=== PATIENT | female | born 1970 | race Caucasian/White ===

== ENCOUNTER 2017-02-20 03:34 | Emergency (ER) | payer OTHER ==
[~2017-02-20] VITALS: Ht 170.2 cm; Wt 88.5 kg
[~2017-02-20 03:34] MED LIST: ALBUTEROL INHAL17 GM; ALBUTEROL2.5 MG/31 INH; CEFUROXIME250 MG PO; K-DUR 20 MEQ T20 MEQ PO; LEVAQUIN 500 M500 M4 PO; MEDROL DOSPAK21 TA1 PO; NORCO 5-325 TA1 EACH PO; PREDNISOLONE 5 M5 M1 PO; PREDNISONE50 MG PO; PROAIR HFA8.5 GM IH; ULTRAM 50MG TAB50 MG PO; VENTOLIN HFA INH8 GM; VIRTUSSIN AC L473 ML PO; ZOFRAN ODT4 MG PO; ZPAK PO
[2017-02-20] MEDS ORDERED: ALEVE220 MG PO (03:42)
[2017-02-20 04:04] LABS: HEMATOCRIT 44.1 % (37.0-47.0); HEMOGLOBIN 14.7 gm/dL (12.0-15.0); MCH 30.6 pg (26.0-34.0); MCHC 33.2 g/dL (28.0-37.0); MCV 92.1 fL (80.0-100.0); MPV 8.3 fl. (7.2-11.1); NUCLEATED RBCS 0 /100WBC; PLATELET COUNT* 242 thou/uL (150-400); RBC 4.79 mil/uL (4.20-5.00); RDW-CV 13.2 % (10.5-14.5); WBC 14.3 thou/uL (4.0-11.0)
[2017-02-20 04:25] LABS: ANION GAP 12 mmol/L (7-16); BUN 11 mg/dL (7-18); CALCIUM 9.7 mg/dL (8.5-10.1); CHLORIDE 106 mmol/L (98-107); CO2 21 mmol/L (21-32); CREATININE 0.7 mg/dL (0.6-1.3); GLUCOSE 128 mg/dL (70-99); LIPASE 105 U/L (73-393); SGOT 9 U/L (15-37); SODIUM 139 mmol/L (136-145); TOTAL BILIRUBIN 0.4 mg/dL (<0.1-1.0)
[2017-02-20 04:26] LABS: ALBUMIN 3.7 g/dL (3.4-5.0); ALKALINE PHOSPHATASE 69 U/L (46-116); SGPT 20 U/L (30-65); TOTAL PROTEIN 6.5 g/dL (6.4-8.2); TROPONIN-I LEVEL <0.06 ng/mL (<0.06)
[2017-02-20 05:00] LABS: URINE BILIRUBIN NEGATIVE (Negative); URINE BLOOD TRACE (Negative); URINE CLARITY CLEAR; URINE COLOR YELLOW; URINE GLUCOSE-RANDOM NEGATIVE (Negative); URINE KETONES NEGATIVE (Negative); URINE LEUKOCYTES-REFLEX NEGATIVE (Negative); URINE NITRITE-REFLEX NEGATIVE (Negative); URINE PROTEIN NEGATIVE (Negative); URINE UROBILINOGEN 0.2 E.U./dl (0.2-1.0)
[2017-02-20 05:10] LABS: ABSOLUTE LYMPHOCYTES 0.9 thou/uL (0.8-5.3); ABSOLUTE MONOCYTES 0.3 thou/uL (0.0-1.2); ABSOLUTE NEUTROPHILS 13.2 thou/uL (1.6-8.1); ANISOCYTOSIS Occasional; PLATELET ESTIMATE ADEQUATE
[2017-02-20 05:11] LABS: TOXIC GRANULATION 1+
[2017-02-20] MEDS ORDERED: NORCO 5-325 TA1 EACH PO (06:01)
[2017-02-20] MEDS ORDERED: ZOFRAN ODT4 MG SUBLING (06:01)
[2017-02-20] MEDS ORDERED: CIPROFLOXACIN500 M1 PO (06:02)
[2017-02-20 06:08] VITALS: BP 101/58
--- NOTE | 2017-02-20 11:23 | EKG ---
[place] [address] ELECTROCARDIOGRAM REPORT Name: DEALOTILIO Kitty Room: [facility]#: [id number] Admission: 02/20/17 Attend Phys: Discharge: 02/20/17 Date of : 68 Report #: [id number] THIS REPORT FOR: //name// [facility] ED Test Date: 2017-02-20 Test Time: 03:54:30 Pat Name: OTILIO DEAL Department: Room: Gender: F Senior Sql Developer: THADDEUS : 1970 Requested By: Walt Cantu Order Number: [id number] MD: Bassem Elmore Measurements Intervals [place] Rate: 82 P: 36 IN: 161 QRS: 7 QRSD: 81 T: 29 QT: 370 QTc: 432 Interpretive Statements Sinus rhythm Baseline wander in lead(s) V4 Compared to ECG 10/09/2013 11:15:04 Sinus arrhythmia no longer present Electronically Signed On 02-20-2017 11:23:15 JOINT SEALER by Bassem Elmore [email or web address] <ELECTRONICALLY SIGNED> By: Bassem Elmore MD, [facility] 02/20/17 [id number] Bassem Elmore MD, FACC /EPI
== END 2017-02-20 06:08 | disposition home or self-care (01) ==
LOC: M.ERS 03:34
PROVIDERS: Family Medicine
DX: R11.2 Nausea with vomiting, unspecified (principal); R10.9 Unspecified abdominal pain; J45.909 Unspecified asthma, uncomplicated; F17.210 Nicotine dependence, cigarettes, uncomplicated; Z90.710 Acquired absence of both cervix and uterus; Z88.8 Allergy status to other drugs, medicaments and biological substances

== ENCOUNTER 2017-06-11 21:09 | Emergency (ER) | payer OTHER ==
[~2017-06-11] VITALS: Ht 170.2 cm; Wt 97.1 kg
[~2017-06-11 21:09] MED LIST changes: +ALEVE220 MG PO; +CIPROFLOXACIN500 M1 PO; +ZOFRAN ODT4 MG SUBLING
[2017-06-11 21:35] LABS: ABSOLUTE EOSINOPHILS 0.1 thou/uL (0.0-0.7); ABSOLUTE LYMPHOCYTES 1.5 thou/uL (0.8-5.3); ABSOLUTE MONOCYTES 0.5 thou/uL (0.0-1.2); ABSOLUTE NEUTROPHILS 2.9 thou/uL (1.6-8.1); BASOPHILS 0.8 %; EOSINOPHILS 2.2 %; HEMATOCRIT 40.4 % (37.0-47.0); HEMOGLOBIN 13.4 gm/dL (12.0-15.0); LYMPHOCYTES 29.2 %; MCH 30.7 pg (26.0-34.0); MCHC 33.3 g/dL (28.0-37.0); MCV 92.3 fL (80.0-100.0); MONOCYTES 9.9 %; MPV 7.8 fl. (7.2-11.1); NUCLEATED RBCS 0 /100WBC; PLATELET COUNT* 194 thou/uL (150-400); POLYS 57.9 %; RBC 4.38 mil/uL (4.20-5.00); RDW-CV 13.3 % (10.5-14.5)
[2017-06-11 21:41] LABS: ANION GAP 9 mmol/L (7-16); BUN 5 mg/dL (7-18); CALCIUM 8.8 mg/dL (8.5-10.1); CHLORIDE 106 mmol/L (98-107); CO2 26 mmol/L (21-32); CREATININE 0.8 mg/dL (0.6-1.3); GLUCOSE 91 mg/dL (70-99); POTASSIUM 3.4 mmol/L (3.5-5.1); SODIUM 141 mmol/L (136-145)
[2017-06-11 21:51] LABS: ALBUMIN 3.6 g/dL (3.4-5.0); ALKALINE PHOSPHATASE 60 U/L (46-116); LIPASE 97 U/L (73-393); NT-PRO BRAIN NAT PEPTIDE 33 pg/mL (<300); SGOT 16 U/L (15-37); SGPT 24 U/L (30-65); TOTAL BILIRUBIN 0.2 mg/dL (<0.1-1.0); TOTAL PROTEIN 6.9 g/dL (6.4-8.2); TROPONIN-I LEVEL <0.06 ng/mL (<0.06)
[2017-06-11 21:53] LABS: URINE BILIRUBIN NEGATIVE (Negative); URINE BLOOD 1+ (Negative); URINE CLARITY CLEAR; URINE COLOR YELLOW; URINE GLUCOSE-RANDOM NEGATIVE (Negative); URINE KETONES NEGATIVE (Negative); URINE LEUKOCYTES-REFLEX NEGATIVE (Negative); URINE NITRITE-REFLEX NEGATIVE (Negative); URINE PROTEIN NEGATIVE (Negative); URINE UROBILINOGEN 0.2 E.U./dl (0.2-1.0)
[2017-06-11 22:03] LABS: CRYSTALS None Seen /LPF (None Seen); MUCUS None Seen strn/LPF (None Seen); SQUAMOUS 0-3 Few /LPF (0-3)
[2017-06-11 22:04] LABS: CASTS None Seen /LPF (None Seen); URINE RBC 0-2 Rare /HPF (0-2)
[2017-06-11 22:05] LABS: BACTERIA-REFLEX 1-9 Few /HPF (None Seen); URINE WBC-REFLEX 0-5 Rare /HPF (0-5)
[2017-06-11] MEDS ORDERED: CARAFATE 1 GM TA1 GM PO (22:52)
[2017-06-11] MEDS ORDERED: COMPAZINE10 MG PO (22:52)
[2017-06-11 23:08] VITALS: BP 137/88
--- NOTE | 2017-06-13 17:18 | EKG ---
[place] [address] ELECTROCARDIOGRAM REPORT Name: OTILIO DEAL Room: [facility]#: [id number] Admission: 06/11/17 Attend Phys: Discharge: 06/11/17 Date of : 68 Report #: [id number] THIS REPORT FOR: //name// [facility] ED Test Date: 2017-06-11 Test Time: 21:15:06 Pat Name: OTILIO DEAL Department: Room: Gender: F Juvenile Justice Specialist: THADDEUS : 1970 Requested By: Agustina Traylor Order Number: [id number] MD: Mike Greene Measurements Intervals [place] Rate: 77 P: 31 PA: 164 QRS: 65 QRSD: 99 T: 25 QT: 366 QTc: 415 Interpretive Statements Sinus rhythm Possible left atrial enlargement Compared to ECG 02/20/2017 03:54:30 No significant changes Electronically Signed On 06-13-2017 17:18:08 CDT by Mike Greene [email or web address] <ELECTRONICALLY SIGNED> By: Mike Greene MD, [facility] 06/13/17 1718 14 Mike Greene MD, FACC /EPI
== END 2017-06-11 23:09 | disposition home or self-care (01) ==
LOC: M.ERS 21:09
PROVIDERS: Emergency Medicine
DX: R11.2 Nausea with vomiting, unspecified (principal); F17.210 Nicotine dependence, cigarettes, uncomplicated; Z88.8 Allergy status to other drugs, medicaments and biological substances; J45.909 Unspecified asthma, uncomplicated; Z90.710 Acquired absence of both cervix and uterus

== ENCOUNTER 2018-10-18 16:06 | Emergency (ER) | payer OTHER ==
[~2018-10-18] VITALS: Ht 170.2 cm; Wt 95.3 kg
[~2018-10-18 16:06] MED LIST changes: +CARAFATE 1 GM TA1 GM PO; +COMPAZINE10 MG PO
[2018-10-18 16:31] LABS: ABSOLUTE BASOPHILS 0.1 thou/uL (0.0-0.2); ABSOLUTE EOSINOPHILS 0.1 thou/uL (0.0-0.7); ABSOLUTE LYMPHOCYTES 1.9 thou/uL (0.8-5.3); ABSOLUTE MONOCYTES 0.7 thou/uL (0.0-1.2); ABSOLUTE NEUTROPHILS 8.4 thou/uL (1.6-8.1); BASOPHILS 0.5 %; EOSINOPHILS 0.9 %; HEMATOCRIT 41.4 % (37.0-47.0); HEMOGLOBIN 13.7 gm/dL (12.0-15.0); LYMPHOCYTES 16.9 %; MCH 30.5 pg (26.0-34.0); MCV 92.5 fL (80.0-100.0); MONOCYTES 6.5 %; MPV 7.8 fl. (7.2-11.1); NUCLEATED RBCS 0 /100WBC; PLATELET COUNT* 323 thou/uL (150-400); POLYS 75.2 %; RBC 4.48 mil/uL (4.20-5.00); WBC 11.2 thou/uL (4.0-11.0)
[2018-10-18 16:39] LABS: URINE BILIRUBIN NEGATIVE (Negative); URINE BLOOD 2+ (Negative); URINE CLARITY CLEAR; URINE COLOR YELLOW; URINE GLUCOSE-RANDOM NEGATIVE (Negative); URINE KETONES NEGATIVE (Negative); URINE LEUKOCYTES-REFLEX TRACE (Negative); URINE NITRITE-REFLEX NEGATIVE (Negative); URINE PROTEIN NEGATIVE (Negative); URINE SPECIFIC GRAVITY <= 1.005 (1.005-1.030); URINE UROBILINOGEN 0.2 E.U./dl (0.2-1.0)
[2018-10-18 16:40] LABS: ANION GAP 10 mmol/L (7-16); BUN 9 mg/dL (7-18); CALCIUM 8.6 mg/dL (8.5-10.1); CHLORIDE 105 mmol/L (98-107); CO2 26 mmol/L (21-32); CREATININE 0.8 mg/dL (0.6-1.3); GLUCOSE 101 mg/dL (70-99); POTASSIUM 3.7 mmol/L (3.5-5.1); SODIUM 141 mmol/L (136-145)
[2018-10-18 16:49] LABS: ALBUMIN 3.6 g/dL (3.4-5.0); ALKALINE PHOSPHATASE 91 U/L (46-116); LIPASE 82 U/L (73-393); SGOT 13 U/L (15-37); SGPT 23 U/L (30-65); TOTAL BILIRUBIN 0.4 mg/dL (<0.1-1.0); TOTAL PROTEIN 7.2 g/dL (6.4-8.2); TROPONIN-I LEVEL <0.06 ng/mL (<0.06)
[2018-10-18 17:03] LABS: SQUAMOUS >10 Many /LPF (0-3)
[2018-10-18 17:04] LABS: CASTS None Seen /LPF (None Seen); CRYSTALS None Seen /LPF (None Seen); MUCUS 0-3 Light strn/LPF (None Seen)
[2018-10-18 17:05] LABS: BACTERIA-REFLEX 1-9 Few /HPF (None Seen); URINE RBC 0-2 Rare /HPF (0-2); URINE WBC-REFLEX 0-5 Rare /HPF (0-5)
[2018-10-18] MEDS ORDERED: MEDROLDOSEPACK PO (19:40)
[2018-10-18] MEDS ORDERED: CEFUROXIME250 MG PO (19:40)
[2018-10-18] MEDS ORDERED: PROAIR HFA8.5 GM INH (19:40)
[2018-10-18 20:09] VITALS: BP 123/72
--- NOTE | 2018-10-19 09:45 | EKG ---
[place] [address] ELECTROCARDIOGRAM REPORT Name: OTILIO DEAL Room: [facility]#: [id number] Admission: 10/18/18 Attend Phys: Discharge: 10/18/18 Date of : 68 Report #: [id number] THIS REPORT FOR: //name// [facility] ED Test Date: 2018-10-18 Test Time: 16:28:54 Pat Name: OTILIO DEAL Department: Room: Gender: F Nursing Teacher: ROSALIND : 1970 Requested By: Jennifer Aleman Order Number: [id number] MD: Bassem Elmore Measurements Intervals [place] Rate: 81 P: 19 [place]: 161 QRS: -12 QRSD: 83 T: 14 QT: 360 QTc: 418 Interpretive Statements Sinus rhythm Left atrial enlargement Low voltage, precordial leads Baseline wander in lead(s) II,V1 Compared to ECG 06/11/2017 21:15:06 Low QRS voltage now present Electronically Signed On 10-19-2018 9:45:03 CDT by Bassem Elmore [email or web address] <ELECTRONICALLY SIGNED> By: Bassem Elmore MD, [facility] 10/19/18 0945 [id number] 1628 Bassem Elmore MD, [facility] /EPI
== END 2018-10-18 20:11 | disposition home or self-care (01) ==
LOC: M.ERS 16:06
PROVIDERS: Nurse Practitioner Family
DX: J45.909 Unspecified asthma, uncomplicated (principal); R10.11 Right upper quadrant pain; R11.2 Nausea with vomiting, unspecified; F17.210 Nicotine dependence, cigarettes, uncomplicated; Z90.710 Acquired absence of both cervix and uterus; Z88.8 Allergy status to other drugs, medicaments and biological substances; Z91.018 Allergy to other foods

== ENCOUNTER 2019-03-26 03:42 | Emergency (ER) | payer OTHER ==
[~2019-03-26] VITALS: Ht 170.2 cm; Wt 111.1 kg
[~2019-03-26 03:42] MED LIST changes: +MEDROLDOSEPACK PO; +PROAIR HFA8.5 GM INH
[2019-03-26] MEDS ORDERED: PREDNISONE50 MG PO (05:57)
[2019-03-26] MEDS ORDERED: DIAZEPAM 5 MG5 MG PO (05:57)
[2019-03-26] MEDS ORDERED: TYLENOL WITH CO1 TA1 PO (05:57)
[2019-03-26 06:14] VITALS: BP 108/59
== END 2019-03-26 06:14 | disposition home or self-care (01) ==
LOC: M.ERS 03:42
DX: M43.6 Torticollis (principal); J45.909 Unspecified asthma, uncomplicated; F17.210 Nicotine dependence, cigarettes, uncomplicated; Z88.8 Allergy status to other drugs, medicaments and biological substances; Z91.018 Allergy to other foods; Z90.710 Acquired absence of both cervix and uterus

== ENCOUNTER 2019-03-29 14:39 | Emergency (ER) | payer OTHER ==
[~2019-03-29] VITALS: Ht 170.2 cm; Wt 112.5 kg
[~2019-03-29 14:39] MED LIST changes: +DIAZEPAM 5 MG5 MG PO; +TYLENOL WITH CO1 TA1 PO
[2019-03-29] MEDS ORDERED: NORCO 5-325 TA1 EAC1 PO (17:23)
[2019-03-29] MEDS ORDERED: DIAZEPAM 5 MG5 M1 PO (17:38)
[2019-03-29 17:44] VITALS: BP 139/86
== END 2019-03-29 17:46 | disposition home or self-care (01) ==
LOC: M.ERS 14:39
DX: M43.6 Torticollis (principal); E07.9 Disorder of thyroid, unspecified; J45.909 Unspecified asthma, uncomplicated; F17.210 Nicotine dependence, cigarettes, uncomplicated; Z90.710 Acquired absence of both cervix and uterus; Z91.018 Allergy to other foods